=== PATIENT | female | born 1960 ===

== ENCOUNTER 2017-01-31 17:10 | Inpatient (IN) | payer OTHER ==
[2017-01-31] MEDS ORDERED: clonazePAM 1 MG TAB PO PRN (19:01)
[2017-01-31] MEDS ORDERED: MORPHINE SULFATE 4 MG/ML SYRINGE IVP PRN (19:04)
[2017-01-31] MEDS: SODIUM CHLORIDE 0.9% 1,000 ML IV SCH (20:18)
[2017-01-31 20:40] LABS: Glucose,Whole Blood 186 mg/dL (75-99)
[2017-01-31] MEDS ORDERED: INSULIN GLARGINE 100 UNIT/ML 10 ML VIAL SQ SCH (21:00)
[2017-01-31] MEDS: INSULIN LISPRO (humaLOG) 300 UNIT/3 ML VIAL SQ SCH (21:53)
[2017-02-01] MEDS ORDERED: HYDROcodone/APAP 5-325MG 1 EACH TAB PO PRN (00:21)
[2017-02-01] MEDS ORDERED: TEMAZEPAM 15 MG CAP PO PRN (00:21)
[2017-02-01] MEDS ORDERED: LORazepam 2 MG/ML SYRINGE IV PRN (00:21)
[2017-02-01] MEDS ORDERED: HYDROmorphone 1 MG/ML 1 ML SYRINGE IVP PRN (00:21)
[2017-02-01] MEDS ORDERED: IBUPROFEN 800 MG TAB PO PRN (00:22)
[2017-02-01] MEDS ORDERED: LACTOBACILLUS ACIDOPH & BULGAR 1 EACH PACKET PO PRN (00:22)
[2017-02-01] MEDS: ONDANSETRON 4 MG/2 ML VIAL IVP PRN ×2 (00:45→08:42)
[2017-02-01] MEDS: HYDROmorphone 1 MG/ML 1 ML SYRINGE IVP PRN ×4 (00:46→13:31)
[2017-02-01] MEDS ORDERED: clonazePAM 1 MG TAB PO STA (00:58)
[2017-02-01] MEDS: SODIUM CHLORIDE 0.9% 1,000 ML IV SCH ×2 (06:13→16:29)
[2017-02-01 07:40] LABS: Glucose,Whole Blood 143 mg/dL (75-99)
[2017-02-01] MEDS: PANTOPRAZOLE 40 MG/10 ML VIAL IVP SCH (08:21)
[2017-02-01] MEDS: LINAGLIPTIN 5 MG TABLET PO SCH (08:21)
[2017-02-01] MEDS: clonazePAM 1 MG TAB PO SCH ×2 (08:21→22:17)
[2017-02-01] MEDS: HEPARIN SODIUM,PORCINE 5,000 UNIT/ML 1 ML VIAL SQ SCH ×2 (08:22→22:08)
[2017-02-01] MEDS: INSULIN LISPRO (humaLOG) 300 UNIT/3 ML VIAL SQ SCH ×4 (08:24→22:08)
[2017-02-01] MEDS: INSULIN GLARGINE 100 UNIT/ML 10 ML VIAL SQ SCH ×2 (08:26→22:17)
[2017-02-01] MEDS ORDERED: NON-FORMULARY DRUG (Liraglutide [Victoza 2-Pak] 1.8 MG) SQ SCH (09:00)
[2017-02-01] MEDS ORDERED: NON-FORMULARY DRUG (Phentermine Hcl [Adipex-P] 37.5 MG) PO SCH (09:00)
[2017-02-01 09:22] LABS: Basophils # (A) 0.1 k/uL (0-0.2); Basophils % (A) 1 %; CH 31.4; CHCM 32.2; Eosinophils # (A) 0.1 k/uL (0-0.7); Eosinophils % (A) 2 %; HCT 36.4 % (34.0-46.0); HDW 2.86; HGB 11.8 gm/dL (11.4-16.0); Luc # (Auto) 0.17; Luc % (Auto) 4; Lymphocytes # (A) 1.3 k/uL (1.0-4.8); Lymphocytes % (A) 26 %; MCH 31.9 pg (25.0-35.0); MCHC 32.5 g/dL (31.0-37.0); MCV 98.2 fL (80.0-100.0); Mean Platelet Volume 7.8; Monocytes # (A) 0.5 k/uL (0-1.0); Monocytes % (A) 10 %; Neutrophils # (A) 2.9 k/uL (1.3-7.7); Neutrophils % (A) 58 %; RBC 3.71 m/uL (3.80-5.40); RDW 13.9 % (11.5-15.5); WBC 5.1 k/uL (3.8-10.6); WBC (Perox) 5.27
[2017-02-01 09:33] LABS: ALT 43 U/L (9-52); AST 30 U/L (14-36); Alkaline Phosphatase 72 U/L (38-126); Anion Gap 7 mmol/L; Blood Urea Nitrogen 16 mg/dL (7-17); Calcium 8.4 mg/dL (8.4-10.2); Carbon Dioxide 22 mmol/L (22-30); Chloride 107 mmol/L (98-107); Glucose 141 mg/dL (74-99); Non-African American GFR(MDRD) >60 (>60 ml/min/1.73 sqM); Potassium 3.9 mmol/L (3.5-5.1); Sodium 136 mmol/L (137-145); Total Bilirubin 0.4 mg/dL (0.2-1.3); Total Protein 5.4 g/dL (6.3-8.2)
[2017-02-01 11:43] LABS: Hemoglobin A1C 8.7 % (4.2-6.1)
--- NOTE | 2017-02-01 11:46 | HP ---
DATE OF ADMISSION: 01/31/2017 CHIEF COMPLAINT: Right flank pain as well as urinary tract infection. HISTORY OF PRESENT ILLNESS: This 56-year-old woman with a past medical history of diabetes type 2, history of polycystic ovarian cyst, history of DJD, history of anxiety, depression, being followed by primary care physician in the [facility], recent subsequently patient again, the patient had urinary symptoms, dysuria and subsequently the patient also had right flank pain and the patient was diagnosed with UTI . Because of lack of improvement, the patient was transferred to [facility] and admitted for further evaluation. The patient had extensive history of multiple and multiple surgical procedures for the last 2 or 3 decades. Stones were mostly calcium oxalate and the last procedure was done in [place] according to her though. Official reports are not available. There is no history of fever or rigors. No history of headache, loss of consciousness or seizures. No chest pain, palpitations. No history of hematochezia, melena at this time. PAST MEDICAL HISTORY: History of diabetes, history of polycystic ovaries syndrome, endometriosis, appendectomy, history of anxiety, depression, history of renal stones. Home medications are: 1. Klonopin 1 mg p.o. b.i.d. 2. Adipex 37.5 mg . 3. Probiotic 1 daily. 4. Tradjenta 5 mg p.o. daily. 5. Motrin 800 mg t.i.d. p.r.n. 6. Cipro 500 mg b.i.d. 7. Victoza 1.8 p.o. daily. 8. Insulin Lantus 40 units subcu b.i.d. ALLERGIES: PENICILLIN AND SULFA. FAMILY HISTORY: History of lung cancer in the family. SOCIAL HISTORY: Previous history of smoking. No history of alcohol intake. REVIEW OF SYSTEMS: ENT: No diminishing hearing. No diminished vision. CARDIOVASCULAR: No angina or palpitations. RESPIRATORY: As mentioned earlier. GI: No nausea. : As mentioned earlier. Nervous system: No numbness or weakness. ALLERGY/IMMUNOLOGY: No asthma or hayfever. MUSCULOSKELETAL: As mentioned earlier. ENDOCRINE: Diabetes mellitus. CONSTITUTIONAL: As mentioned earlier. DERMATOLOGY: Negative. RHEUMATOLOGY: Negative. PSYCHIATRY: As mentioned earlier. PHYSICAL EXAMINATION: Alert and oriented times three. Pulse is 78. Blood pressure 120/86. Respiratory rate 18. Temperature 99 degrees. Pulse ox 94% on room air. HEENT: Conjunctivae normal. Oral mucosa moist. NECK: No jugular venous distention. No carotid bruits. No lymph node enlargement. CARDIOVASCULAR: S1, S2 muffled. No S3, no S4. RESPIRATORY: Breath sounds diminished at the bases. No rhonchi, no crackles. ABDOMEN: Soft. Mild diffuse tenderness in the lower pole abdomen and right renal angle also present. No mass palpable. Legs: No edema. No swelling. Nervous system: Higher functions as mentioned earlier. Moves all four limbs. LYMPHATICS: No lymph nodes palpable in the neck, axillae or groin. SKIN: No ulcer, rash or bleeding. LABS: Glucose ntd. ASSESSMENT: 1. Acute urinary tract infection with possibly right pyelonephritis. 2. Severe abdominal pain. 3. History of multiple urolithiasis. 4. Diabetes mellitus type 2. 5. History of polycystic ovarian syndrome. 6. History of multiple sclerosis. 7. History of degenerative joint disease. 8. History of irritable bowel syndrome. 9. History of endometriosis. 10. History of appendectomy. 11. History of cholecystectomy. 12. History of small bowel resection. 13. History of anxiety, depression, not otherwise specified. 14. Remote history of nicotine dependence. RECOMMENDATIONS AND DISCUSSION: In this 56-year-old woman who presented with multiple complex medical issues, we will monitor the patient closely, continue the current medications, continue symptomatic treatment. Otherwise, at this time, I recommend continue with symptomatic treatment. Monitor blood sugars. See orders for further details. Guarded prognosis because of multiple complex medical issues. Further recommendations to follow. Please obtain cultures and infectious disease evaluation. [facility]
[2017-02-01 12:33] LABS: Glucose,Whole Blood 146 mg/dL (75-99)
--- NOTE | 2017-02-01 13:19 | P.GSCN ---
History of Present Illness Consult date: 02/01/17 Reason for Consult: Renal Calculi Requesting physician: Lindsey Urbano History of present illness: The patient is a 56-year-old white female with a history of recurrent calcium oxalate urolithiasis. She has required multiple surgical procedures in the past , including ureteroscopy and ESWL. She underwent open removal of a left renal or proximal ureteral calculus in the past. Her most recent surgery was in June 2015. The majority of her urologic care has been rendered in [place], [place], but she has recently moved back to [place]. She now presents with severe right flank pain. I reviewed her computed tomography scan, which reveals a 12 mm right mid-pole renal calculus. The computed tomography scan also shows several small left lower pole renal calculi. There is no evidence of hydronephrosis. No ureteral calculi are seen. She has previously undergone a formal metabolic evaluation, and dietary changes have been recommended along with treatment in the form of hydrochlorothiazide. The patient has a history of multiple sclerosis but denies voiding dysfunction. She has had only rare episodes of urge incontinence, and experiences nocturia only when she consumes too much fluids. Review of Systems - Constitutional Reports fever, Denies chills - Respiratory Denies dyspnea - Gastrointestinal Reports nausea, Reports vomiting - Genitourinary Genitourinary: Denies dysuria, Denies hematuria Past Medical History Past Medical History: Diabetes Mellitus Additional Past Medical History / Comment(s): Polycystic ovarian disease, endomitriosis, MS 1993, arthritis IBS History of Any Multi-Drug Resistant Organisms: None Reported Past Surgical History: Appendectomy, Hernia Repair, Hysterectomy Additional Past Surgical History / Comment(s): multiple cyst removal uterus, cyst removal from underarm, gallbladder removed, cerclage X2, small bowel recetion, kidney stone obstruction, approx. 70 lithotripsy's since 1984, Past Anesthesia/Blood Transfusion Reactions: No Reported Reaction Additional Past Anesthesia/Blood Transfusion Reaction / Comm: no previous blood transfusion Past Psychological History: Anxiety, Depression Smoking Status: Former smoker Past Alcohol Use History: None Reported Past Drug Use History: None Reported - Past Family History Mother Additional Family Medical History / Comment(s): Mother of lung CA at 68 Father Additional Family Medical History / Comment(s): Heart disease at 77 Medications and Allergies Home Medications Medication Instructions Recorded Confirmed Type Ciprofloxacin HCl [Cipro] 500 mg PO Q12HR 01/31/17 01/31/17 History Ibuprofen [Motrin] 800 mg PO TID PRN 01/31/17 01/31/17 History Insulin Glargine,Hum.rec.anlog 40 unit SQ BID@1000,2200 01/31/17 01/31/17 History [Lantus Solostar] L.acidoph,Paracasei, B.lactis 1 cap PO BID PRN 01/31/17 01/31/17 History [Probiotic] Linagliptin [Tradjenta] 5 mg PO DAILY 01/31/17 01/31/17 History Liraglutide [Victoza 2-Nehemias] 1.8 mg SQ DAILY 01/31/17 01/31/17 History Phentermine HCl [Adipex-P] 37.5 mg PO QAM 01/31/17 01/31/17 History clonazePAM [KlonoPIN] 1 mg PO BID 01/31/17 01/31/17 History Allergies Allergy/AdvReac Type Severity Reaction Status Date / Time Penicillins Allergy Dyspnea Verified 01/31/17 19:13 Sulfa (Sulfonamide Allergy Dyspnea Verified 01/31/17 19:13 Antibiotics) Surgical - Exam Vital Signs Temp Pulse Resp BP Pulse Ox 99.0 F 78 18 118/64 94 L 01/31/17 19:28 01/31/17 19:28 01/31/17 19:28 01/31/17 19:28 01/31/17 19:28 - General well developed, well nourished, moderate distress - Respiratory normal respiratory effort - Abdomen Abdomen: soft, tender (RLQ tenderness), no guarding, no rigid, no rebound - Neurologic no disoriented, no combative - Psychiatric oriented to time, oriented to person, oriented to place, speech is normal, memory intact Results - Labs 02/01/17 08:17 02/01/17 08:17 Abnormal Lab Results - Last 24 Hours (Table) 01/31/17 02/01/17 02/01/17 Range/Units 20:39 07:39 08:17 RBC (3.80-5.40) m/uL Plt Count (150-450) k/uL Sodium (137-145) mmol/L Glucose (74-99) mg/dL POC Glucose (mg/dL) 186 H 143 H (75-99) mg/dL Hemoglobin A1c 8.7 H (4.2-6.1) % Total Protein (6.3-8.2) g/dL Albumin (3.5-5.0) g/dL 02/01/17 02/01/17 02/01/17 Range/Units 08:17 08:17 12:24 RBC 3.71 L (3.80-5.40) m/uL Plt Count 126 L (150-450) k/uL Sodium 136 L (137-145) mmol/L Glucose 141 H (74-99) mg/dL POC Glucose (mg/dL) 146 H (75-99) mg/dL Hemoglobin A1c (4.2-6.1) % Total Protein 5.4 L (6.3-8.2) g/dL Albumin 2.8 L (3.5-5.0) g/dL Diabetes panel 02/01/17 02/01/17 Range/Units 08:17 08:17 Sodium 136 L (137-145) mmol/L Potassium 3.9 (3.5-5.1) mmol/L Chloride 107 (98-107) mmol/L Carbon Dioxide 22 (22-30) mmol/L BUN 16 (7-17) mg/dL Creatinine 0.62 (0.52-1.04) mg/dL Glucose 141 H (74-99) mg/dL Hemoglobin A1c 8.7 H (4.2-6.1) % Calcium 8.4 (8.4-10.2) mg/dL AST 30 (14-36) U/L ALT 43 (9-52) U/L Alkaline Phosphatase 72 (38-126) U/L Total Protein 5.4 L (6.3-8.2) g/dL Albumin 2.8 L (3.5-5.0) g/dL Calcium panel 02/01/17 Range/Units 08:17 Calcium 8.4 (8.4-10.2) mg/dL Albumin 2.8 L (3.5-5.0) g/dL Pituitary panel 02/01/17 Range/Units 08:17 Sodium 136 L (137-145) mmol/L Potassium 3.9 (3.5-5.1) mmol/L Chloride 107 (98-107) mmol/L Carbon Dioxide 22 (22-30) mmol/L BUN 16 (7-17) mg/dL Creatinine 0.62 (0.52-1.04) mg/dL Glucose 141 H (74-99) mg/dL Calcium 8.4 (8.4-10.2) mg/dL Adrenal panel 02/01/17 Range/Units 08:17 Sodium 136 L (137-145) mmol/L Potassium 3.9 (3.5-5.1) mmol/L Chloride 107 (98-107) mmol/L Carbon Dioxide 22 (22-30) mmol/L BUN 16 (7-17) mg/dL Creatinine 0.62 (0.52-1.04) mg/dL Glucose 141 H (74-99) mg/dL Calcium 8.4 (8.4-10.2) mg/dL Total Bilirubin 0.4 (0.2-1.3) mg/dL AST 30 (14-36) U/L ALT 43 (9-52) U/L Alkaline Phosphatase 72 (38-126) U/L Total Protein 5.4 L (6.3-8.2) g/dL Albumin 2.8 L (3.5-5.0) g/dL - Imaging CT scan - abdomen: report reviewed, image reviewed Assessment and Plan Plan: The patient is a 56-year-old white female with a history of urolithiasis, who now presents with severe right flank pain. She states that Dilaudid and Zofran have not adequately removed her symptoms. The computed tomography scan shows a 12 mm right mid pole non-obstructing right renal calculus. A urine culture obtained on January 28 was negative. I had a lengthy discussion with the patient, reviewing alternative treatment options. These include PCNL, ESWL, and ureteroscopy with laser lithotripsy. She desires the latter, with stent placement. I will attempt to schedule this on February 03 or February 04. She may be discharged home on oral analgesics in the meantime if her symptoms improve. She will otherwise remain hospitalized. The patient understands the planned procedure, including the potential risks of anesthesia, bleeding, infection, and ureteral injury. Time with Patient: Greater than 30
[2017-02-01 17:12] LABS: Glucose,Whole Blood 132 mg/dL (75-99)
[2017-02-01 21:33] LABS: Glucose,Whole Blood 177 mg/dL (75-99)
[2017-02-01] MEDS: LORazepam 0.5 MG TAB PO SCH (22:08)
[2017-02-02] MEDS: SODIUM CHLORIDE 0.9% 1,000 ML IV SCH ×3 (02:50→21:07)
[2017-02-02] MEDS: HYDROmorphone 1 MG/ML 1 ML SYRINGE IVP PRN ×2 (05:04→09:02)
[2017-02-02] MEDS: ONDANSETRON 4 MG/2 ML VIAL IVP PRN ×3 (05:04→21:02)
[2017-02-02 07:12] LABS: Glucose,Whole Blood 126 mg/dL (75-99)
[2017-02-02] MEDS: INSULIN LISPRO (humaLOG) 300 UNIT/3 ML VIAL SQ SCH ×4 (07:45→20:55)
[2017-02-02] MEDS: PANTOPRAZOLE 40 MG/10 ML VIAL IVP SCH (08:51)
[2017-02-02] MEDS: HEPARIN SODIUM,PORCINE 5,000 UNIT/ML 1 ML VIAL SQ SCH ×2 (08:51→20:39)
[2017-02-02] MEDS: clonazePAM 1 MG TAB PO SCH ×2 (08:55→21:02)
[2017-02-02] MEDS: INSULIN GLARGINE 100 UNIT/ML 10 ML VIAL SQ SCH ×2 (08:55→21:02)
[2017-02-02] MEDS: LINAGLIPTIN 5 MG TABLET PO SCH (08:56)
[2017-02-02 09:15] LABS: Anion Gap 8 mmol/L; Blood Urea Nitrogen 15 mg/dL (7-17); Calcium 8.4 mg/dL (8.4-10.2); Carbon Dioxide 26 mmol/L (22-30); Chloride 107 mmol/L (98-107); Glucose 119 mg/dL (74-99); Non-African American GFR(MDRD) >60 (>60 ml/min/1.73 sqM); Sodium 141 mmol/L (137-145)
[2017-02-02 09:28] LABS: Aty Lym Flag Slight; CH 31.7; CHCM 32.7; HDW 2.93; HGB 12.1 gm/dL (11.4-16.0); MCH 31.8 pg (25.0-35.0); MCHC 32.7 g/dL (31.0-37.0); MCV 97.3 fL (80.0-100.0); Mean Platelet Volume 9.3; RDW 13.8 % (11.5-15.5); WBC 4.6 k/uL (3.8-10.6); WBC (Perox) 4.95
--- NOTE | 2017-02-02 09:35 | PN ---
DATE OF SERVICE: 02/01/2017 This 56-year-old woman was admitted with UTI with possible pyelonephritis with severe left flank pain, being closely monitored. The patient is on empiric antibiotics. Initially culture done positive for 18 hours per reports. Otherwise, urology is also following the patient closely. The patient had nonobstructing right ureteral calculus. Urology might offer ureteroscope with laser lithotripsy and as well as stent placement. No chest pain, no palpitations. No fever. PAST MEDICAL HISTORY: Reviewed. REVIEW OF SYSTEMS: CARDIOVASCULAR: No angina. RESPIRATORY: As mentioned. GI: As mentioned. : As mentioned. NERVOUS SYSTEM: No numbness or weakness. Current Medications are: 1. [place] q.6 p.r.n. 2. Rocephin 1 gram q.24. 3. Klonopin 1 mg b.i.d. 4. Heparin 5000 subcu b.i.d. 5. Dilaudid 0.5 to 1 q.3 p.r.n. 6. Motrin 800 mg t.i.d. 7. Lantus 40 units subcu b.i.d. 8. Humalog. 9. Lactinex 1 tablet p.o. b.i.d. p.r.n. 10. Tradjenta 5 mg p.o. daily. 11. Ativan 0.5 q.6 p.r.n. 12. Zofran. 13. Protonix. 14. Zestril. PHYSICAL EXAMINATION: Patient is alert and oriented x3. Pulse 68, blood pressure 113/56, respirations 16, temperature 98.5, pulse ox 93% on room air. HEENT: Conjunctivae normal. NECK: No jugular venous distention. CARDIOVASCULAR: S1 and S2, muffled. RESPIRATORY: Breath sounds diminished at the bases. No rhonchi, no crackles. ABDOMEN: Soft, mild diffuse discomfort. LEGS: No edema, no swelling. NERVOUS SYSTEM: No focal deficits. LABS: WBC 5, hemoglobin 11.8, platelets 127, 137, Accu-Cheks are noted. ASSESSMENT: 1. Acute urinary tract infection with possible right pyelonephritis with possible sepsis, present on admission. 2. Severe abdominal pain. 3. History of multiple urolithiasis. 4. Diabetes mellitus type 2. 5. History of polycystic ovary syndrome. 6. History of multiple sclerosis. 7. History of degenerative joint disease. 8. History of irritable bowel syndrome. 9. History of endometriosis. 10. History of cholecystectomy. 11. History of small bowel obstruction. 12. History of anxiety and depression, not otherwise specified. 13. Remote history of nicotine dependence. RECOMMENDATIONS AND DISCUSSION: I recommend to continue the current medications, continue monitoring and symptomatic treatment. Continue with IV antibiotics. Cultures are negative. Continue the pain medications. Symptomatic treatment. Otherwise Urology input appreciated. Discussed with the patient. Continue to monitor. Prognosis guarded. Further recommendations to follow. DVT prophylaxis. See orders for further details. MTDD
[2017-02-02 09:42] LABS: Add Differential Manual Differential
[2017-02-02 09:43] LABS: Nucleated Red Blood Cells 0 /100 WBC (0-0); Polychromasia Present; Total Cells Counted 100
--- NOTE | 2017-02-02 11:00 | P.PN ---
Progress Note - Text Ms. Moy continues to experience flank pain, nausea, and vomiting. In view of this, an attempt will be made to schedule ureteroscopic removal of her right renal calculus tomorrow. The procedure was reviewed in detail with her. She understands the potential risks of anesthesia and ureteral injury. It is worth mentioning that the severity of her symptoms exceeds what would typically be expected for a non-obstructing renal calculus, and if her symptoms persist following removal of the calculus further evaluation may be required to determine alternative etiologies of her symptomatology.
[2017-02-02 11:58] LABS: Glucose,Whole Blood 172 mg/dL (75-99)
[2017-02-02] MEDS: MORPHINE SULFATE 4 MG/ML SYRINGE IVP PRN ×3 (12:13→21:02)
--- NOTE | 2017-02-02 12:16 | CONS ---
DATE OF CONSULTATION: 02/01/2017 REASON FOR CONSULTATION: Right-sided pyelonephritis. HISTORY OF PRESENT ILLNESS: The patient is a 56-year-old female with past medical history significant for recurrent calcium oxylate stones admitted for surgeries including ureteroscopy and ESWL. Patient has been living in [place] and recently moved back to [place]. The patient started having pain in the right flank area over the last few days. Pain has been severe, sharp with some radiation to the right groin area with intensity almost 10 out of 10 with associated nausea, vomiting and did have a fever. With these symptoms the patient has presented to the [facility] where the patient did have a CT of the abdomen and pelvis that did show right mid-pole renal calculus about 12 mm and multiple small calculi in the left kidney. No evidence of hydronephrosis with evidence of the urinary tract infection. Patient subsequently has been transferred down to [facility] for further evaluation. Patient does give a history of burning and some urinary frequency but no hematuria. No significant diarrhea. Started on Rocephin. ID was consulted for further recommendation regarding antibiotic therapy. REVIEW OF SYSTEMS: CONSTITUTIONAL: Positive for weakness and fever. EYES: No complaint. ENT: No complaint. RESPIRATORY: No complaint. CARDIOVASCULAR: No complaint. GENITOURINARY: As per HPI. GASTROINTESTINAL: No complaint. MUSCULOSKELETAL: No complaint. INTEGUMENTARY: No complaint. ENDOCRINAL: No complaint. PSYCHOLOGICAL: No complaint. NEUROLOGICAL: No complaint. PAST MEDICAL HISTORY: Significant for polycystic ovarian disease, endometriosis, irritable bowel syndrome and diabetes mellitus. PAST SURGICAL HISTORY: Hysterectomy, hernia repair, appendectomy. SOCIAL HISTORY: Remote history of smoking. No drinking or drug use. FAMILY HISTORY: Mother of lung cancer at age 68. Father of heart disease at 77. ALLERGIES: PENICILLIN AND SULFA though tolerated Rocephin without any problem. Medications currently include the patient is on [place], Rocephin 1 gram daily. She is on Klonopin, heparin, Dilaudid, Motrin, Lantus, Humalog, Lactinex, Tradjenta, Ativan, Victoza, Zofran, Protonix, Restoril. On examination, blood pressure is 113/56 with a pulse of 68, temperature 98.1, T-max of 99. She is 93% on room air. General description is a middle-age female lying in bed in no distress. No tachypnea or accessory muscle of respiration use. HEENT examination shows no pallor or scleral icterus. Oral mucous membrane dry. NECK: Trachea central. There is no thyromegaly. LUNGS: Unlabored breathing. Clear to auscultation anteriorly. No wheeze or crackles. HEART: S1, S2. Regular rate and rhythm. ABDOMEN: Soft. No guarding. She has mild right flank tenderness. No guarding or rigidity. No organomegaly. EXTREMITIES: No edema of feet. SKIN: No rash or mass palpable. NEUROLOGICAL: The patient is awake, alert, oriented x3. Mood and affect normal. LABS: Hemoglobin is 11.8, white count 5.1. BUN of 16, creatinine 0.62. Electrolytes have been normal. Liver enzymes are normal. No culture has been obtained in this setting. DIAGNOSTIC IMPRESSION AND PLAN: 1. Patient admitted to hospital with right flank pain with evidence of a right-sided nephrolithiasis with burning and frequency and some fever likely representing a component of a right-sided pyelonephritis, likely from enteric gram-negative pathogen and overall fever responding to Rocephin, likely a sensitive. 2. Patient with multiple antibiotic allergies that will limit the number of antibiotics that could be safely used. PLAN: 1. Rocephin 1 gram IV piggyback daily to continue. 2. Will try to obtain urine and blood culture report from [facility] to adjust antibiotics further. Thank you for this consultation. We will follow this patient along with you.
--- NOTE | 2017-02-02 13:47 | XR ---
EXAMINATION TYPE: XR KUB DATE OF EXAM: 02/02/2017 COMPARISON: NONE HISTORY: Right kidney stone TECHNIQUE: 2 views FINDINGS: There are clips from cholecystectomy. Bowel gas pattern is normal. There is a 5 mm calcific ation over the lower pole left kidney. There is a 1 cm irregular calcification over the interpolar ri ght kidney. There are scattered phleboliths in the pelvis. There is no sign of intestinal obstruction or pneumoperitoneum. Lung bases are clear. IMPRESSION: Bilateral renal calcifications. Nonacute abdomen.
[2017-02-02 17:11] LABS: Glucose,Whole Blood 199 mg/dL (75-99)
[2017-02-02 20:50] LABS: Glucose,Whole Blood 241 mg/dL (75-99)
[2017-02-02] MEDS: LORazepam 0.5 MG TAB PO SCH (20:55)
[2017-02-03] MEDS: ONDANSETRON 4 MG/2 ML VIAL IVP PRN ×4 (02:48→20:56)
[2017-02-03] MEDS: MORPHINE SULFATE 4 MG/ML SYRINGE IVP PRN ×5 (02:48→20:57)
[2017-02-03 07:18] LABS: Glucose,Whole Blood 120 mg/dL (75-99)
[2017-02-03] MEDS: INSULIN GLARGINE 100 UNIT/ML 10 ML VIAL SQ SCH ×2 (07:51→20:56)
[2017-02-03] MEDS: INSULIN LISPRO (humaLOG) 300 UNIT/3 ML VIAL SQ SCH ×4 (07:51→20:50)
[2017-02-03] MEDS: HEPARIN SODIUM,PORCINE 5,000 UNIT/ML 1 ML VIAL SQ SCH ×2 (08:02→20:50)
[2017-02-03] MEDS: clonazePAM 1 MG TAB PO SCH ×2 (08:02→20:56)
[2017-02-03] MEDS: PANTOPRAZOLE 40 MG/10 ML VIAL IVP SCH (08:02)
[2017-02-03] MEDS: LINAGLIPTIN 5 MG TABLET PO SCH (08:02)
[2017-02-03] MEDS: SODIUM CHLORIDE 0.9% 1,000 ML IV SCH ×3 (08:11→22:26)
[2017-02-03 08:39] LABS: Aty Lym Flag Slight; CH 32.2; CHCM 34.3; HCT 39.3 % (34.0-46.0); HDW 3.05; HGB 13.1 gm/dL (11.4-16.0); MCH 31.5 pg (25.0-35.0); MCHC 33.3 g/dL (31.0-37.0); MCV 94.5 fL (80.0-100.0); Mean Platelet Volume 8.1; RBC 4.16 m/uL (3.80-5.40); RDW 13.8 % (11.5-15.5); WBC 5.9 k/uL (3.8-10.6); WBC (Perox) 5.86
[2017-02-03 09:41] LABS: Anion Gap 8 mmol/L; Blood Urea Nitrogen 11 mg/dL (7-17); Calcium 8.7 mg/dL (8.4-10.2); Carbon Dioxide 28 mmol/L (22-30); Chloride 105 mmol/L (98-107); Glucose 125 mg/dL (74-99); Non-African American GFR(MDRD) >60 (>60 ml/min/1.73 sqM); Potassium 3.9 mmol/L (3.5-5.1); Sodium 141 mmol/L (137-145)
[2017-02-03 10:54] LABS: Add Differential Manual Differential
[2017-02-03 11:05] LABS: Nucleated Red Blood Cells 0 /100 WBC (0-0); Total Cells Counted 100
[2017-02-03 11:06] LABS: Manual Review Performed
--- NOTE | 2017-02-03 12:31 | PN ---
DATE OF SERVICE: 02/02/2017 Reason for followup is right-sided pyelonephritis. INTERVAL HISTORY: The patient is afebrile. She is complaining of pain in the right flank area. Patient denies significant chest pain or shortness of breath. No cough, no abdominal pain or any diarrhea. On examination, blood pressure 140/59 with a pulse of 68, temperature 97.3, she is 96% on room air. General description is a middle-aged female lying in bed, in no distress. RESPIRATORY SYSTEM: Unlabored breathing. Clear to auscultation anteriorly. HEART: S1, S2. Regular rate and rhythm. ABDOMEN: Soft. No tenderness. LABS: Hemoglobin is 12.1, white count 4.6 with a BUN of 15, creatinine 0.62. DIAGNOSTIC IMPRESSION AND PLAN: Patient with right-sided flank pain with a renal stone and possibility of a urinary tract infection. Urine was positive, hence the ( ). Cultures are currently pending. At this point the Rocephin will be continued. Continue supportive care.
[2017-02-03 12:37] LABS: Glucose,Whole Blood 97 mg/dL (75-99)
--- NOTE | 2017-02-03 15:12 | PN ---
DATE OF SERVICE: 02/02/2017 This is a 56-year-old woman who was admitted with acute UTI with possible pyelonephritis, is being closely monitored. Dr. Burks is following the patient closely and planning ureteroscope removal of the right renal calculus tomorrow. Otherwise, no chest pain or palpitation. No fever. On exam, alert and oriented x3. Pulse is 68, blood pressure 140/69, respirations 18, temperature 97.3, pulse ox 96% on room air. HEENT: Conjunctivae normal. NECK: No jugular venous distension. CARDIOVASCULAR SYSTEM: S1, S2, muffled. RESPIRATORY: Breath sounds diminished at the bases, a few scattered rhonchi, no crackles. ABDOMEN: Soft, nontender. LEGS: No edema, no swelling. NERVOUS SYSTEM: No focal deficits. LABS: CBC within normal limits. Glucose 119. ASSESSMENT: 1. Acute urinary tract infection with possible right pyelonephritis with possible sepsis, present on admission. 2. Severe abdominal pain. 3. History of multiple urolithiasis. 4. Diabetes mellitus type 2. 5. History of polycystic ovaries. 6. History of multiple sclerosis. 7. History of degenerative joint disease. 8. History of irritable bowel syndrome. 9. History of endometriosis. 10. History of cholecystectomy. 11. History of small bowel obstruction. 12. History of anxiety, depression, not otherwise specified. 13. Remote history of nicotine dependence. RECOMMENDATION: Recommend to continue with the current medications, continue with symptomatic treatment, continue with the antibiotics. Cultures are negative so far. Follow closely with Urology and Infectious Disease. Further recommendations to follow.
[2017-02-03 17:02] LABS: Glucose,Whole Blood 91 mg/dL (75-99)
--- NOTE | 2017-02-03 17:09 | P.PN ---
Progress Note - Text Ms. Ricardo continues to experience right flank pain. She is afebrile. She was tentatively scheduled to undergo ureteroscopic removal of her right renal calculus, but ultimately this was canceled due to the OR board being overly full. I intend to perform this procedure tomorrow afternoon, and I anticipate she could be discharged home postoperatively.
[2017-02-03] MEDS: LORazepam 0.5 MG TAB PO SCH (20:50)
[2017-02-03 20:54] LABS: Glucose,Whole Blood 291 mg/dL (75-99)
--- NOTE | 2017-02-03 22:48 | PN ---
DATE OF SERVICE : 02/03/2017 Reason for follow-up: ( ) urinary tract infection and question of pyelonephritis. INTERVAL HISTORY: The patient is afebrile. She is complaining of pain in right flank area. The patient denies significant chest pain, shortness of breath, cough. No abdominal pain. No vomiting or diarrhea. On examination, blood pressure 122/53 with a pulse of 52, temperature 98.1, she is 92% on room air. GENERAL DESCRIPTION: Middle-age female lying in bed in no distress. RESPIRATORY SYSTEM: Unlabored breathing. Clear to auscultation anteriorly. HEART: S1, S2 regular rate and rhythm. ABDOMEN: Soft. EXTREMITIES : No edema of the feet. LABS: Hemoglobin 13.1, white count 5.9 with a BUN of 11, creatinine 0.59, blood culture here has been negative. DIAGNOSTIC IMPRESSION AND PLAN: Patient with right flank pain with underlying renal stone with a question of urinary tract infection/pyelonephritis. So far blood culture done here have been negative. Initial cultures done at [facility], we will ( ) from there. Continue the patient on Rocephin. Continue supportive care.
[2017-02-04] MEDS: INSULIN LISPRO (humaLOG) 300 UNIT/3 ML VIAL SQ SCH ×2 (07:26→12:34)
[2017-02-04 07:42] LABS: Glucose,Whole Blood 125 mg/dL (75-99)
[2017-02-04 08:19] LABS: Basophils # (A) 0.1 k/uL (0-0.2); Basophils % (A) 1 %; CH 31.8; CHCM 33.4; Eosinophils # (A) 0.1 k/uL (0-0.7); Eosinophils % (A) 2 %; HCT 41.8 % (34.0-46.0); HGB 13.4 gm/dL (11.4-16.0); Luc # (Auto) 0.27; Luc % (Auto) 4; Lymphocytes # (A) 1.6 k/uL (1.0-4.8); Lymphocytes % (A) 26 %; MCH 30.7 pg (25.0-35.0); MCHC 32.1 g/dL (31.0-37.0); MCV 95.8 fL (80.0-100.0); Mean Platelet Volume 7.5; Monocytes # (A) 0.4 k/uL (0-1.0); Monocytes % (A) 7 %; Neutrophils # (A) 3.8 k/uL (1.3-7.7); Neutrophils % (A) 61 %; RBC 4.36 m/uL (3.80-5.40); RDW 13.8 % (11.5-15.5); WBC 6.2 k/uL (3.8-10.6); WBC (Perox) 5.96
[2017-02-04] MEDS: HEPARIN SODIUM,PORCINE 5,000 UNIT/ML 1 ML VIAL SQ SCH ×2 (08:27→13:47)
[2017-02-04] MEDS: clonazePAM 1 MG TAB PO SCH (08:27)
[2017-02-04] MEDS: LINAGLIPTIN 5 MG TABLET PO SCH (08:28)
[2017-02-04] MEDS: INSULIN GLARGINE 100 UNIT/ML 10 ML VIAL SQ SCH (08:28)
[2017-02-04] MEDS: PANTOPRAZOLE 40 MG/10 ML VIAL IVP SCH (08:28)
[2017-02-04 08:45] LABS: Anion Gap 9 mmol/L; Blood Urea Nitrogen 9 mg/dL (7-17); Calcium 8.4 mg/dL (8.4-10.2); Carbon Dioxide 28 mmol/L (22-30); Chloride 104 mmol/L (98-107); Glucose 136 mg/dL (74-99); Non-African American GFR(MDRD) >60 (>60 ml/min/1.73 sqM); Potassium 3.4 mmol/L (3.5-5.1); Sodium 141 mmol/L (137-145)
[2017-02-04] MEDS ORDERED: Potassium Replacement Protocol 1 EACH MISC MISCELLANE PRN (09:52)
[2017-02-04] MEDS: ONDANSETRON 4 MG/2 ML VIAL IVP PRN (10:20)
[2017-02-04] MEDS: POTASSIUM CHLORIDE ER 20 MEQ TAB.ER PO SCH ×2 (10:21→12:35)
[2017-02-04] MEDS: HYDROmorphone 1 MG/ML 1 ML SYRINGE IVP PRN (10:21)
[2017-02-04 12:12] LABS: Glucose,Whole Blood 134 mg/dL (75-99)
[2017-02-04] MEDS ORDERED: ACETAMINOPHEN IV (For NPO) 1,000 MG in EMPTY BAG 1 BAG IVPB ONE (13:00)
[2017-02-04] MEDS ORDERED: IV FLUID CONTINUATION 1,000 ML IV ONE (13:16)
[2017-02-04] MEDS ORDERED: fentaNYL (PF) 50 MCG/ML 2 ML AMP IV ONE (13:44)
[2017-02-04] MEDS ORDERED: ePHEDrine 50 MG/ML 1 ML AMP ONE (13:49)
[2017-02-04] MEDS ORDERED: SUCCINYLCHOLINE CHLORIDE 100 MG/5 ML SYR IV ONE (13:49)
[2017-02-04] MEDS ORDERED: fentaNYL (PF) 50 MCG/ML 2 ML AMP ONE (13:49)
[2017-02-04] MEDS ORDERED: PROPOFOL 10 MG/ML 20 ML VIAL IV ONE (13:49)
[2017-02-04] MEDS ORDERED: KETOROLAC 30 MG/ML 1 ML VIAL ONE (13:49)
[2017-02-04] MEDS ORDERED: LIDOCAINE 1% INJ 10MG/ML (20 ML MDV) ONE (13:49)
[2017-02-04] MEDS ORDERED: LEVOFLOXACIN 500MG-D5W PMX 500 MG in DEXTROSE/WATER 1 100ML.BAG IVPB ONE (14:00)
[2017-02-04] MEDS ORDERED: LACTATED RINGERS 1,000 ML IV ONE (14:40)
--- NOTE | 2017-02-04 15:07 | P.OP ---
Date of Procedure: 02/04/17 Preoperative Diagnosis: Right renal calculus Postoperative Diagnosis: Same Procedure(s) Performed: Cystoscopy, right ureteroscopy with Holmium laser lithotripsy, right ureteral stent insertion Implants: Anesthesia: CONCEPCIONA Surgeon: Jered Burks Estimated Blood Loss (ml): 0 IV fluids (ml): 500 Pathology: none sent Condition: stable Disposition: PACU Indications for Procedure: The patient is a 56-year-old white female with a history of recurrent urolithiasis. She was admitted with severe right flank pain due to a 12 mm non- obstructing right renal calculus. She comes for ureteroscopic removal of the calculus. Operative Findings: 12 mm right midpole renal calculus, fragmented to completion. Description of Procedure: The patient was taken to the operating room and placed in the dorsolithotomy position, with legs supported in Ermias stirrups. The external genitalia was prepped and draped sterilely. The 30 lens was used to introduce the 19-Swedish Stortz cystoscopic sheath through the urethra and into the bladder under direct vision. The bladder was examined in its entirety. Both ureteral orifices were normal anatomic location and configuration, and clear urine effluxed from both. No tumors or foreign bodies were seen. A 0.038 inch Glidewire was passed through the cystoscope. The right ureteral orifice was cannulated, and the Glidewire was advanced up to the right renal pelvis without difficulty. An 11/13-Swedish ureteral access catheter was passed over the wire, up to the proximal ureter. The Olympus flexible ureteroscope was passed through the ureteral access catheter sheath. The ureteroscope was advanced under direct vision, into the right renal pelvis. Each calyx was examined. The only calculus identified was the 12 mm calculus within a midpole calyx. The 200 micron Holmium laser probe was passed through the ureteroscope, and lithotripsy was performed. Using a dusting technique, lithotripsy was continued until the calculus had been fragmented to completion. All calculus fragments were no larger than the size of the fiber tip. The ureteroscope was slowly withdrawn under direct vision. The ureter appeared normal. Specifically , there was no evidence of ureteral trauma, and no ureteral calculi were identified. The cystoscope was replaced into the bladder. The Glidewire was passed up to the right renal pelvis. A 26 cm, 4.8-Swedish double-J ureteral stent was placed over the wire. Proper stent positioning was verified fluoroscopically and endoscopically. The bladder was emptied and the cystoscope removed. The string attached to the stent was taped to the patient's thigh. The patient tolerated the procedure well and was taken to the recovery room in stable condition.
--- NOTE | 2017-02-04 15:21 | FL ---
EXAMINATION TYPE: FL guidance operating room DATE OF EXAM: 02/04/2017 HISTORY: Flouroscopy time 26 seconds of fluoroscopy provided. IMPRESSION: 1. Fluoroscopy time.
[2017-02-04 15:22] VITALS: RESP 16; TEMP 97.6
[2017-02-04 16:01] VITALS: BP 140/60
[2017-02-04 16:33] VITALS: PULSE 70
[2017-02-04] MEDS: SODIUM CHLORIDE 0.9% 1,000 ML IV SCH (16:40)
--- NOTE | 2017-02-04 17:51 | P.PN ---
Subjective Date of service 02/03/2017. Personal being dictated for Dr. Duran. Interval history: This 56-year-old female admitted with acute UTI, possible pyelonephritis and multiple other medical issues. Evaluated by urology, re- scheduled for ureteroscope with removal of right renal calculus. Maintained on antibiotics, afebrile, normal WBC. Abdominal pain currently controlled. Denies chest pain, palpitations or increasing shortness of breath. Objective - Vital Signs Vital signs: Vital Signs Temp 97.6 F 02/04/17 15:12 Pulse 78 02/04/17 16:00 Resp 16 02/04/17 16:00 BP 140/60 02/04/17 16:00 Pulse Ox 94 L 02/04/17 16:00 Intake & Output 02/03/17 02/04/17 02/04/17 18:59 06:59 18:59 Intake Total 600 750 Output Total 0 Balance 600 750 Intake: IV 750 Oral 600 Output: Estimated Blood Loss 0 Other: Voiding Method Toilet Toilet Toilet Incontinent # Voids 1 1 2 - Exam PHYSICAL EXAM: VITAL SIGNS: [Temperature 98.1 oral, pulse 62, respiratory rate 16, blood pressure 122/63, O2 sat 92% on room air] GENERAL: [Lying in bed, no acute distress] HEENT: [Pupils equal conjunctiva normal.] NECK: [Supple, no JVD] RESPIRATORY EFFORT:[ Normal] LUNGS: [Bilateral bases diminished, occasional scattered rhonchi, no wheezing, no crackles] CARDIOVASCULAR[ regular S1-S2, no murmurs rubs or gallops, no edema] GI: [Abdomen soft, nontender, positive bowel sounds. No guarding, no rigidity] PSYCH: [Alert and oriented -3, mood and affect normal.] NEURO: [No focal deficits, moves all 4 extremities, strength and sensation grossly intact] - Labs CBC & Chem 7: 02/04/17 07:39 02/04/17 07:39 Labs: Abnormal Lab Results - Last 24 Hours (Table) 02/03/17 02/04/17 02/04/17 Range/Units 20:49 07:04 07:39 Potassium 3.4 L (3.5-5.1) mmol/L Glucose 136 H (74-99) mg/dL POC Glucose (mg/dL) 291 H 125 H (75-99) mg/dL 02/04/17 Range/Units 12:05 Potassium (3.5-5.1) mmol/L Glucose (74-99) mg/dL POC Glucose (mg/dL) 134 H (75-99) mg/dL Microbiology - Last 24 Hours (Table) 02/01/17 08:17 Blood Culture - Preliminary Blood No Growth after 72 hours Assessment and Plan Plan: 1. Severe abdominal pain with Acute UTI with possible right pyelonephritis, possible sepsis present on admission in a patient with history of multiple urolithiasis. 2. Diabetes mellitus type 2 3. Multiple sclerosis, chronic]. 4. Degenerative joint disease]. 5. Irritable bowel syndrome. 6. History of anxiety, depression, not otherwise specified]. 7. Remote history of nicotine dependence]. Plan: Continue on current medication regime ,monitoring and symptomatic treatment. Maintain antibiotic therapy as per infectious disease. Preliminary cultures negative. As mentioned above rescheduled for cystoscopy, right ureteroscopy with lithotripsy tomorrow with urology. Discharge planning in progress for tomorrow post procedure. Further recommendations to follow. The impression and plan of care has been dictated as directed. : I performed a H&P examination of this patient and discussed the same with the dictator. I agree with the dictator's note. Any additional findings/opinions/ etc. will be noted.
--- NOTE | 2017-02-04 18:00 | P.DS ---
Providers Date of admission: 01/31/17 17:52 Expected date of discharge: 02/04/17 Attending physician: Lindsey Castañeda Consults: 01/31/17 19:07 Consult Physician Urgent Consulting Provider: Cesar Ralph Consult Reason/Comments: pyelonephritis Do you want consulting provider notified?: Yes 02/01/17 00:21 Consult Physician Routine Consulting Provider: Wandy Lopez Consult Reason/Comments: uti Do you want consulting provider notified?: Yes Dr. Burks, Urology [facility]: Final Diagnoses: 1. Severe abdominal pain with Acute UTI with possible right pyelonephritis, possible sepsis present on admission in a patient with history of recurrent urolithiasis. 2. Diabetes mellitus type 2 3. Multiple sclerosis, chronic]. 4. Degenerative joint disease]. 5. Irritable bowel syndrome. 6. History of anxiety, depression, not otherwise specified]. 7. Remote history of nicotine dependence]. Hospital course:This is 56-year-old female admitted with acute UTI, possible pyelonephritis, and multiple other medical issues in a patient with history of recurrent urolithiasis. Maintained on antibiotics. Evaluated by urology, underwent cystoscopy, right ureteroscopy with lithotripsy for removal of 12 mm nonobstructing right renal calculus, with right ureteral stent insertion. Tolerated procedure well. Patient cleared by urology for discharge. Patient being discharged home in a stable condition with guarded prognosis The impression and plan of care has been dictated as directed as a scribe. : I performed a H&P examination of this patient and discussed the same with the dictator. I agree with the dictator's note. Any additional findings/opinions/ etc. will be noted. Patient Condition at Discharge: Stable Plan - Discharge Summary New Discharge Prescriptions: New Hydrocodone/Acetaminophen [Fedora 5-325] 1 - 2 each PO Q4HR PRN #20 tab PRN Reason: Pain Cefuroxime Axetil [Ceftin] 500 mg PO BID #14 tab Continue clonazePAM [KlonoPIN] 1 mg PO BID Phentermine HCl [Adipex-P] 37.5 mg PO QAM L.acidoph,Paracasei, B.lactis [Probiotic] 1 cap PO BID PRN PRN Reason: IBS Linagliptin [Tradjenta] 5 mg PO DAILY Ibuprofen [Motrin] 800 mg PO TID PRN PRN Reason: Pain Liraglutide [Victoza 2-Nehemias] 1.8 mg SQ DAILY Insulin Glargine,Hum.rec.anlog [Lantus Solostar] 40 unit SQ BID@1000,2200 Discontinued Ciprofloxacin HCl [Cipro] 500 mg PO Q12HR Discharge Medication List Ibuprofen [Motrin] 800 mg PO TID PRN 01/31/17 [History] Insulin Glargine,Hum.rec.anlog [Lantus Solostar] 40 unit SQ BID@1000,2200 [History] L.acidoph,Paracasei, B.lactis [Probiotic] 1 cap PO BID PRN 01/31/17 [History] Linagliptin [Tradjenta] 5 mg PO DAILY 01/31/17 [History] Liraglutide [Victoza 2-Nehemias] 1.8 mg SQ DAILY 01/31/17 [History] Phentermine HCl [Adipex-P] 37.5 mg PO QAM 01/31/17 [History] clonazePAM [KlonoPIN] 1 mg PO BID 01/31/17 [History] Cefuroxime Axetil [Ceftin] 500 mg PO BID #14 tab 02/04/17 [Rx] Hydrocodone/Acetaminophen [Fedora 5-325] 1 - 2 each PO Q4HR PRN #20 tab 02/04/17 [Rx] Follow up Appointment(s)/Referral(s): Sindy Cortés [facility] [REFERRING] - 02/07/17 10:50 am () Jered Burks MD [STAFF PHYSICIAN] - 1 Week (Dr Burks office will call with appointment time ) Ambulatory/Diagnostic Orders: Complete Blood Count w/diff [LAB.AMB] Time Frame: 3 Days, Location: Determined By Patient Patient Instructions/Handouts: Urinary Tract Infection in Women (DC) Activity/Diet/Wound Care/Special Instructions: Drink plenty of fluids. Cardiac, diabetic diet as tolerated. Activity as tolerated. Advised patient to be careful not to inadvertently pull out her stent. Discharge Disposition: HOME SELF-CARE
--- NOTE | 2017-02-04 20:20 | PN ---
DATE OF SERVICE: 02/04/2017 Reason for follow up is a possible right-sided pyelonephritis. INTERVAL HISTORY: The patient is afebrile. He is still complaining of pain in the right flank area awaiting for her procedure today for the right renal stone. Denies significant chest pain. No shortness of breath or cough. On examination, blood pressure is 128/74 with a pulse of 70, temperature 98.1. She is 93% on room air. General description is a middle-aged female lying in bed in no obvious distress. RESPIRATORY SYSTEM: Unlabored breathing. Clear to auscultation anteriorly. HEART: S1, S2, regular rate and rhythm. ABDOMEN: Soft. LABS: Hemoglobin 13.1, white count 6.2 with BUN of 9, creatinine 0.62. Blood culture has been negative. DIAGNOSTIC IMPRESSION AND PLAN: Patient was transferred to this facility with a right flank pain, stone and a question of pyelonephritis. So far blood culture here has been negative. Patient at this time is on Rocephin, which she will be switched to p.o. Ceftin for another week to finish course of therapy. Continue supportive care.
[2017-02-05] MEDS ORDERED: PANTOPRAZOLE 40 MG TABLET PO SCH (07:30)
[2017-02-05] MEDS ORDERED: LINAGLIPTIN 5 MG TABLET PO SCH (09:00)
== END 2017-02-04 17:28 | disposition home or self-care (01) | DRG 854 ==
LOC: 4MS4W 17:52
PROVIDERS: ADMIT Internal Medicine; ATTEND Internal Medicine
PROC: 0TC08ZZ Extirpation of Matter from Right Kidney, Via Natural or Artificial Opening Endoscopic (ICD-10-PCS; principal; 2017-02-04 13:30)
PROC: 0T768DZ Dilation of Right Ureter with Intraluminal Device, Via Natural or Artificial Opening Endoscopic (ICD-10-PCS; 2017-02-04 13:30)
DX: A41.9 Sepsis, unspecified organism (principal); N12 Tubulo-interstitial nephritis, not specified as acute or chronic; G35 Multiple sclerosis; N20.0 Calculus of kidney; Z87.442 Personal history of urinary calculi; E11.9 Type 2 diabetes mellitus without complications; E28.2 Polycystic ovarian syndrome; K58.9 Irritable bowel syndrome, unspecified; M19.90 Unspecified osteoarthritis, unspecified site; Z79.4 Long term (current) use of insulin; Z79.84 Long term (current) use of oral hypoglycemic drugs; Z82.49 Family history of ischemic heart disease and other diseases of the circulatory system; Z87.891 Personal history of nicotine dependence; Z88.0 Allergy status to penicillin; Z88.2 Allergy status to sulfonamides; Z79.899 Other long term (current) drug therapy; N39.41 Urge incontinence
CPT/HCPCS: 74000; 80048; 80053; 83036; 85025; 87040

== ENCOUNTER 2017-02-05 00:42 | Emergency (ER) | payer OTHER ==
[2017-02-05 00:52] VITALS: BP 126/67; PULSE 84; RESP 18; TEMP 98.8
--- NOTE | 2017-02-05 01:17 | ED ---
General Adult HPI - General Chief complaint: Recheck/Abnormal Lab/Rx Stated complaint: stent issues-post op Time Seen by Provider: 02/05/17 01:02 Source: patient Mode of arrival: ambulatory Limitations: no limitations - History of Present Illness Initial comments: Patient is a 56-year-old woman who states that she woke up on her couch tonight , feeling wet, and when she went to the bathroom discovered that her ureteral stent appeared to be coming out. The patient had seen Dr. Mir earlier in the day and had the stent placed as treatment for a stone with obstruction. The patient does state that she is having similar flank pain as she was before. She is not having fever or chills, no palpitations, chest pain or shortness of breath. No abdominal pain. Onset/Timin -: hour(s) Consistency: constant Improves with: none Worsens with: none Associated Symptoms: denies other symptoms - Related Data Home Medications Medication Instructions Recorded Confirmed Ibuprofen [Motrin] 800 mg PO TID PRN 01/31/17 02/05/17 Insulin Glargine,Hum.rec.anlog 40 unit SQ BID@1000,2200 01/31/17 02/05/17 [Lantus Solostar] L.acidoph,Paracasei, B.lactis 1 cap PO BID PRN 01/31/17 02/05/17 [Probiotic] Linagliptin [Tradjenta] 5 mg PO DAILY 01/31/17 02/05/17 Liraglutide [Victoza 2-Nehemias] 1.8 mg SQ DAILY 01/31/17 02/05/17 Phentermine HCl [Adipex-P] 37.5 mg PO QAM 01/31/17 02/05/17 clonazePAM [KlonoPIN] 1 mg PO BID 01/31/17 02/05/17 Previous Rx's Medication Instructions Recorded Cefuroxime Axetil [Ceftin] 500 mg PO BID #14 tab 02/04/17 Hydrocodone/Acetaminophen [Alma 1 - 2 each PO Q4HR PRN #20 tab 02/04/17 5-325] Allergies Allergy/AdvReac Type Severity Reaction Status Date / Time Penicillins Allergy Dyspnea Verified 02/05/17 00:52 Sulfa (Sulfonamide Allergy Dyspnea Verified 02/05/17 00:52 Antibiotics) Review of Systems ROS Statement: Those systems with pertinent positive or pertinent negative responses have been documented in the HPI. ROS Other: All systems not noted in ROS Statement are negative. Constitutional: Denies: fever, chills Respiratory: Denies: cough, dyspnea Cardiovascular: Denies: chest pain, palpitations Gastrointestinal: Denies: abdominal pain, nausea, vomiting Genitourinary: Reports: as per HPI, hematuria Musculoskeletal: Denies: back pain Skin: Denies: rash Past Medical History Past Medical History: Diabetes Mellitus Additional Past Medical History / Comment(s): Polycystic ovarian disease, endomitriosis, MS 1993, arthritis IBS History of Any Multi-Drug Resistant Organisms: None Reported Past Surgical History: Appendectomy, Hernia Repair, Hysterectomy Additional Past Surgical History / Comment(s): multiple cyst removal uterus, cyst removal from underarm, gallbladder removed, cerclage X2, small bowel recetion, kidney stone obstruction, approx. 70 lithotripsy's since 1984, Past Anesthesia/Blood Transfusion Reactions: No Reported Reaction Additional Past Anesthesia/Blood Transfusion Reaction / Comment(s): no previous blood transfusion Past Psychological History: Anxiety, Depression Smoking Status: Former smoker Past Alcohol Use History: None Reported Past Drug Use History: None Reported - Past Family History Mother Additional Family Medical History / Comment(s): Mother of lung CA at 68 Father Additional Family Medical History / Comment(s): Heart disease at 77 General Exam Limitations: no limitations General appearance: alert, in no apparent distress, obese Respiratory exam: Present: normal lung sounds bilaterally. Absent: respiratory distress, wheezes, rales, rhonchi, stridor Cardiovascular Exam: Present: regular rate, normal rhythm, normal heart sounds. Absent: systolic murmur, diastolic murmur, rubs, gallop GI/Abdominal exam: Present: soft, normal bowel sounds. Absent: distended, tenderness, guarding, rebound, mass, pulsatile mass External exam: Present: other (Physician program services assistant Marsha Reardon present for exam. External genitalia appear normal however there is a double-J ureteral stent protruding which is at the 5 cm william.) Extremities exam: Present: normal inspection, normal capillary refill. Absent: pedal edema, calf tenderness Back exam: Present: normal inspection Skin exam: Present: warm, dry, intact, normal color. Absent: rash Course Vital Signs 02/05/17 00:50 Temperature 98.8 F Pulse Rate 84 Respiratory 18 Rate Blood Pressure 126/67 O2 Sat by Pulse 97 Oximetry Medical Decision Making - Medical Decision Making Case discussed with Dr. Burks, who requests that the stent be removed and that she follow with him, calling for appointment in the morning. Disposition Clinical Impression: Ureteral stent displacement Disposition: HOME SELF-CARE Condition: Fair Instructions: Kidney Stones (ED) Referrals: Sindy Cortés [facility] [REFERRING] - 1-2 days
[2017-02-05] MEDS ORDERED: MORPHINE SULFATE 4 MG/ML SYRINGE IM STA (01:26)
[2017-02-05] MEDS ORDERED: ONDANSETRON ODT 4 MG TAB PO STA (01:38)
== END 2017-02-05 01:58 | disposition home or self-care (01) ==
LOC: EC 00:42
DX: T83.89XA Other specified complication of genitourinary prosthetic devices, implants and grafts, initial encounter (principal); E11.9 Type 2 diabetes mellitus without complications; K58.9 Irritable bowel syndrome, unspecified; M19.90 Unspecified osteoarthritis, unspecified site; F32.9 Major depressive disorder, single episode, unspecified; F41.9 Anxiety disorder, unspecified; Z87.891 Personal history of nicotine dependence; Z79.4 Long term (current) use of insulin; Z79.899 Other long term (current) drug therapy; Z88.0 Allergy status to penicillin; Z88.2 Allergy status to sulfonamides
CPT/HCPCS: 99283; 96372; J2270

== ENCOUNTER 2017-04-14 05:46 | Day surgery (SDC) | payer OTHER ==
[2017-04-07 14:48] VITALS: BMI 29.0
[~2017-04-14 05:46] MED LIST: DEXAMETHASONE SOD PHOSPHATE 10 MG/ML 1 ML VIAL IV ONE; HYDROmorphone 1 MG/ML 1 ML SYRINGE IVP PRN; LACTATED RINGERS 1,000 ML IV SCH; LIDOCAINE 1% 20 ML VIAL (10MG/ML) FOR IV START INTRADERMA PRN; Pre Op ABX Message 1 EACH MISC MISCELLANE ONE; SCOPOLAMINE 1.5MG/72HR PATCH TRANSDERM ONE
[2017-04-14 06:44] VITALS: RESP 16; TEMP 97.6
[2017-04-14 06:46] LABS: Glucose,Whole Blood 104 mg/dL (75-99)
[2017-04-14] MEDS ORDERED: ONDANSETRON 4 MG/2 ML VIAL IVP ONE (06:52)
[2017-04-14] MEDS ORDERED: MIDAZOLAM 2 MG/2 ML VIAL IV ONE (06:59)
[2017-04-14] MEDS ORDERED: MIDAZOLAM 2 MG/2 ML VIAL ONE (07:34)
[2017-04-14] MEDS ORDERED: PROPOFOL 10 MG/ML 20 ML VIAL IV ONE (07:34)
[2017-04-14] MEDS ORDERED: fentaNYL (PF) 50 MCG/ML 2 ML AMP ONE (07:34)
[2017-04-14] MEDS ORDERED: KETAMINE 10 MG/ML 20 ML VIAL ONE (07:34)
--- NOTE | 2017-04-14 08:22 | P.OP ---
Date of Procedure: 04/14/17 Preoperative Diagnosis: Left ureteral calculi Postoperative Diagnosis: Left ureteral calculi Procedure(s) Performed: Extracorporeal shock wave lithotripsy Implants: Anesthesia: MAC Surgeon: Camacho Rosado Indications for Procedure: Operative Findings: The patient is a 56-year-old female with a history of recurrent urolithiasis. She was recently discovered to have 2 calculi in the lower pole of the left kidney which in aggregate measuring approximately 4 mm in diameter. Treatment options were reviewed with Dr. Burks and the patient has elected to proceed with ESWL The patient was taken to the operating suite where intravenous sedation was given. The patient was placed in the supine position on the fluoroscopy table. The left renal calculi in the lower pole of the kidney were localized using biplanar fluoroscopy. Lithotripsy was performed using the Dornier compact delta unit. The patient received 2500 shocks at level V at rate of 80 shocks per minute. There appeared to be good fragmentation of the calculi. Anesthesia was reversed and the patient was returned to the recovery room awake and in satisfactory condition. The patient be seen back in follow-up in 1 week at which time a KUB will be obtained. Description of Procedure:
--- NOTE | 2017-04-14 09:04 | XR ---
Abdomen HISTORY: Kidney stones Frontal view of the abdomen correlated to prior exam 02/02/2017 Calcifications superimposed over the left kidney appears stable. There is a large amount of fecal guerita ris present within the colon possibly obscuring right-sided kidney stones. Calcifications within the pelvis are again noted. Difficult to exclude distal ureteral calculus. IMPRESSION: Left nephrolithiasis. Examining the limited. Indeterminate pelvic calcifications
[2017-04-14 09:36] VITALS: BP 135/70; PULSE 81
== END 2017-04-14 09:36 | disposition home or self-care (01) ==
LOC: ORWHC2ENDO 05:46
PROVIDERS: ATTEND Urology
DX: N20.2 Calculus of kidney with calculus of ureter (principal); E11.9 Type 2 diabetes mellitus without complications; G35 Multiple sclerosis; F41.9 Anxiety disorder, unspecified; F32.9 Major depressive disorder, single episode, unspecified; K58.9 Irritable bowel syndrome, unspecified; Z79.1 Long term (current) use of non-steroidal anti-inflammatories (NSAID); Z79.4 Long term (current) use of insulin; Z79.899 Other long term (current) drug therapy; Z88.0 Allergy status to penicillin; Z88.2 Allergy status to sulfonamides; Z87.891 Personal history of nicotine dependence
CPT/HCPCS: 74000; 50590; J2250; J1100; J2405; J3010; J2704

== ENCOUNTER → 2017-12-15 | Outpatient (CLI) | payer OTHER ==
--- NOTE | 2017-12-15 10:04 | XR ---
Abdomen HISTORY: Kidney stones, renal colic Frontal view of the abdomen submitted on 2 images and correlated to prior exam 04/14/2017 Multiple calcifications are again noted within the pelvis, many of which are likely vascular. Surgica l clips are present in the right upper quadrant. Calcifications superimposed over the lower pole left kidney on prior exam is less conspicuous, small calcifications are thought present although overlyin g bowel gas may obscure detail. Lung bases are not included on the exam. IMPRESSION: Suspect some left-sided nephrolithiasis. Pelvic calcifications again noted. Postop change s.
== END | disposition home or self-care (01) ==
LOC: RADXRMAIN 08:41
PROVIDERS: ATTEND Urology
DX: R19.07 Generalized intra-abdominal and pelvic swelling, mass and lump (principal); Z98.890 Other specified postprocedural states
CPT/HCPCS: 74018